=== PATIENT | female | born 2000 | race Hispanic/Latino ===

== ENCOUNTER 2024-05-11 06:50 | Emergency (ER) | payer OTHER ==
[~2024-05-11] VITALS: Ht 180.3 cm; Wt 147.9 kg
[2024-05-11] MEDS ORDERED: NAPROXEN250 MG PO (08:13)
[2024-05-11] MEDS ORDERED: KETOROLAC TROMETHAMINE 30 MG/ML VIAL ONE (08:21)
[2024-05-11] MEDS: KETOROLAC TROMETHAMINE 30 MG/ML VIAL IM STA (08:47)
[2024-05-11 09:07] VITALS: PULSE 68; RESP 16; TEMP 98.1; O2SAT 99
== END 2024-05-11 09:09 | disposition home or self-care (01) ==
LOC: ER 07:16
DX: M54.6 Pain in thoracic spine (principal); M54.50 Low back pain, unspecified; X50.1XXA Overexertion from prolonged static or awkward postures, initial encounter; Y92.89 Other specified places as the place of occurrence of the external cause
CPT/HCPCS: 81025; 99282; J1885